=== PATIENT | male | born 1950 | race Caucasian/White ===

== ENCOUNTER 2023-09-15 20:07 | Emergency (ER) | payer MEDICARE ==
[~2023-09-15] VITALS: Ht 190.5 cm; Wt 99.8 kg
[2023-09-15] MEDS ORDERED: METO-356 PO (20:36)
[2023-09-15] MEDS ORDERED: FINA1TAB11 PO (20:36)
[2023-09-15] MEDS ORDERED: LOSA25TA27 PO (20:36)
[2023-09-15] MEDS ORDERED: RIVA15TA PO (20:36)
[2023-09-15] MEDS ORDERED: HYDROCODONE/APAP 10-325 MG TABLET ONE (21:46)
[2023-09-15] MEDS: HYDROCODONE/APAP 10-325 MG TABLET PO ONE (21:53)
[2023-09-15] MEDS: TDAP DIPH,PERTUSS,TET VAC/PF 0.5 ML DISP.SYRIN IM ONE (22:45)
[2023-09-15] MEDS: NEOMY/BACITRA/POLYMYXIN B OINT UD PACKET TP ONE (22:45)
[2023-09-15] MEDS ORDERED: HYDR-3980 PO (22:51)
[2023-09-15] MEDS ORDERED: TDAP DIPH,PERTUSS,TET VAC/PF 0.5 ML DISP.SYRIN IM ONE (23:06)
[2023-09-15] MEDS ORDERED: NEOMY/BACITRA/POLYMYXIN B OINT UD PACKET TP ONE (23:06)
[2023-09-15 23:32] VITALS: BP 138/88; TEMP 98; O2SAT 99
== END 2023-09-15 23:33 | disposition home or self-care (01) ==
LOC: ER 20:08
DX: S22.41XA Multiple fractures of ribs, right side, initial encounter for closed fracture (principal); S60.221A Contusion of right hand, initial encounter; S80.211A Abrasion, right knee, initial encounter; S39.81XA Other specified injuries of abdomen, initial encounter; N40.0 Benign prostatic hyperplasia without lower urinary tract symptoms; Z79.891 Long term (current) use of opiate analgesic; Z79.899 Other long term (current) drug therapy; R03.0 Elevated blood-pressure reading, without diagnosis of hypertension; V19.9XXA Pedal cyclist (driver) (passenger) injured in unspecified traffic accident, initial encounter; Y93.89 Activity, other specified; Y92.89 Other specified places as the place of occurrence of the external cause; Y99.8 Other external cause status
CPT/HCPCS: 73130; 74150; 90715; A4606; A4663